=== PATIENT | male | born 1935 | race Two or more races ===

== ENCOUNTER 2025-08-09 13:38 | Emergency (ER) | payer MEDICARE, OTHER ==
[~2025-08-09] VITALS: Ht 167.6 cm; Wt 70.0 kg
[~2025-08-09 13:38] MED LIST: DABI150C PO; LISI20TA31 PO; METO25TA6 PO
[2025-08-09 13:40] VITALS: O2SAT 99
[2025-08-09] MEDS: SODIUM CHLORIDE 0.9% 1,000 ML IV ONE (15:10)
[2025-08-09 15:38] LABS: BASOPHILS % 0.3 % (0.0-2.0); EOSINOPHILS % 0.1 % (0.0-5.0); HEMATOCRIT. 36.7 % (42.0-52.0); HEMOGLOBIN. 11.9 g/dL (14.0-18.0); LYMPHOCYTES % 24.1 % (20.0-50.0); MEAN PLATELET VOLUME 9.2 fl (7.4-10.4); MONOCYTES % 10.0 % (2.0-8.0); NEUTROPHILS % 65.5 % (40.0-76.0); PLATELET 139 x1000/uL (130-400); RED BLOOD CELL COUNT 4.00 mill/uL (4.7-6.1); RED CELL DISTRIBUTION WIDTH 15.2 % (11.6-14.6)
[2025-08-09 15:49] LABS: INR 1.6
[2025-08-09 15:54] LABS: TROPONIN I HIGH SENSITIVITY 49 ng/L (3.0-53)
[2025-08-09 15:55] LABS: CREATININE 1.8 mg/dL (0.6-1.3); PROTEIN TOTAL 6.1 g/dL (6.0-8.3); UREA NITROGEN BLOOD 16 mg/dL (9-23)
[2025-08-09 15:56] LABS: ASPARTATE AMINOTRANSFERASE 23 IU/L (<34)
[2025-08-09 15:57] LABS: BILIRUBIN DIRECT 0.3 mg/dL (<=3.0); BILIRUBIN TOTAL 0.6 mg/dL (0.1-1.0)
[2025-08-09 22:13] VITALS: BP 147/73; PULSE 54; RESP 14; TEMP 36.8; O2SAT 96
== END 2025-08-09 22:19 | disposition short-term general hospital (02) ==
LOC: ER 13:38 → CMPBEDREQ 08-11 08:25
DX: R41.82 Altered mental status, unspecified (principal); F03.90 Unspecified dementia, unspecified severity, without behavioral disturbance, psychotic disturbance, mood disturbance, and anxiety; I10 Essential (primary) hypertension; Z79.899 Other long term (current) drug therapy; Z98.890 Other specified postprocedural states; Z79.01 Long term (current) use of anticoagulants
CPT/HCPCS: 99285; 96360; 96361; 70450; 71045; 80076; 80048; 83880; 85025; 85610; 85730; 84484; 36415; 93005; J7030